=== PATIENT | male | born 1970 | race Caucasian/White ===

== ENCOUNTER 2021-01-30 11:10 | Inpatient (IN) ==
[2021-01-30] MEDS ORDERED: Furosemide 40 MG/4 ML VIAL IVP ONE (13:59)
[2021-01-30 15:06] LABS: Basophils # 0.1 K/mcL (0.0-0.2); Basophils % 0.5 %; Eosinophils # 0.4 K/mcL (0.0-0.6); Eosinophils % 2.3 %; Hematocrit 45.7 % (37.5-50.1); Hemoglobin 13.8 g/dL (12.9-16.9); Lymphocytes # 2.2 K/mcL (0.6-4.6); Mean Corpuscular HGB Conc 30.2 g/dL (31.6-35.5); Mean Corpuscular Hemoglobin 27.8 pg (28.0-33.3); Mean Platelet Volume 9.8 fL (9.4-12.4); Monocytes # 0.7 K/mcL (0.0-1.3); Monocytes % 4.3 %; Neutrophils # 12.2 K/mcL (1.6-8.9); Platelet Count 361 K/mcL (140-400); Red Blood Count 4.97 M/mcL (4.19-5.50); Red Cell Distribution Width 15.3 % (11.5-14.5); Segmented Neutrophils % 77.9 %; White Blood Count 15.6 K/mcL (4.3-11.1)
[2021-01-30] MEDS ORDERED: Ketorolac 15 MG/ML VIAL IVP ONE (15:07)
[2021-01-30 15:41] LABS: Alanine Aminotransferase 23 Units/L (7-52); Albumin 4.2 g/dL (3.5-5.7); Albumin/Globulin Ratio 1.4 (1.1-2.2); Alkaline Phosphatase 68 Units/L (34-104); Aspartate Amino Transferase 15 Units/L (13-39); BUN/Creatinine Ratio 14 (6-26); Bilirubin,Direct 0.1 mg/dL (0.0-0.2); Bilirubin,Indirect 0.5 mg/dL (0.0-1.0); Bilirubin,Total 0.6 mg/dL (0.3-1.0); Blood Urea Nitrogen 17 mg/dL (6-20); Calcium 9.9 mg/dL (8.6-10.3); Carbon Dioxide 27 mEq/L (23-29); Chloride 103 mEq/L (98-107); Globulin 2.9 g/dL (2.4-3.5); Glucose 96 mg/dL (70-105); Osmolality,Calculated 293 (280-300); Potassium 3.9 mEq/L (3.5-5.1); Sodium 141 mEq/L (136-145); Total Protein 7.1 g/dL (6.4-8.9); Troponin I < 0.03 ng/mL (< 0.04); eGFR For African Americans > 60 (> 60); eGFR For Non-African Americans > 60 (> 60)
[2021-01-30 15:46] LABS: Procalcitonin 0.05 ng/mL (0.00-0.15)
[2021-01-30] MEDS ORDERED: Perflutren Lipid Microsphere 1.3 ML in 0.9 % Sodium Chloride 8.7 ML IVP PRN (17:50)
[2021-01-30] MEDS ORDERED: D5% in Water 1,000 ML IVC PRN (18:17)
[2021-01-30] MEDS ORDERED: Dextrose Gel 15 GM/37.5 ML TUBE PO PRN ×2 (18:17)
[2021-01-30] MEDS ORDERED: *HR* Dextrose 50 % in Water (Syg) 50 ML SYRINGE IVP PRN (18:17)
[2021-01-30] MEDS: lisinopriL 20 MG TABLET PO SCH (20:05)
[2021-01-30] MEDS: hydrALAZINE 25 MG TABLET PO SCH (20:06)
[2021-01-30] MEDS: Furosemide 20 MG/2 ML VIAL IVP SCH (20:06)
[2021-01-30] MEDS: Gabapentin 300 MG CAPSULE PO SCH (20:06)
[2021-01-30] MEDS: Insulin LISPRO 300 UNITS/3 ML VIAL SUBQ SCH (20:07)
[2021-01-31 05:44] LABS: BUN/Creatinine Ratio 16 (6-26); Blood Urea Nitrogen 20 mg/dL (6-20); Calcium 9.5 mg/dL (8.6-10.3); Carbon Dioxide 29 mEq/L (23-29); Chloride 99 mEq/L (98-107); Glucose 131 mg/dL (70-105); Magnesium 1.8 mg/dL (1.6-2.6); Osmolality,Calculated 290 (280-300); Potassium 3.6 mEq/L (3.5-5.1); Sodium 138 mEq/L (136-145); eGFR For African Americans > 60 (> 60); eGFR For Non-African Americans 59 (> 60)
[2021-01-31] MEDS: Furosemide 20 MG/2 ML VIAL IVP SCH ×2 (08:38→16:24)
[2021-01-31] MEDS: hydrALAZINE 25 MG TABLET PO SCH ×4 (08:38→20:13)
[2021-01-31] MEDS: amLODIPine 5 MG TABLET PO SCH (08:39)
[2021-01-31] MEDS: Metoprolol XL (24 HR) Succ 50 MG TAB.ER.24H PO SCH (08:39)
[2021-01-31] MEDS: lisinopriL 20 MG TABLET PO SCH ×2 (08:39→20:12)
[2021-01-31] MEDS: Gabapentin 300 MG CAPSULE PO SCH ×2 (08:39→20:12)
[2021-01-31] MEDS: predniSONE 10 MG TABLET PO SCH (08:39)
[2021-01-31] MEDS: Insulin LISPRO 300 UNITS/3 ML VIAL SUBQ SCH ×3 (13:49→20:14)
[2021-01-31] MEDS ORDERED: hydroCHLOROthiazide 25 MG TABLET PO SCH (19:45)
[2021-01-31] MEDS: Insulin DETEMIR 100 UNIT/ML X5UNITS SUBQ SCH (21:10)
[2021-02-01 01:57] LABS: Basophils # 0.1 K/mcL (0.0-0.2); Basophils % 0.3 %; Eosinophils # 0.2 K/mcL (0.0-0.6); Eosinophils % 1.1 %; Hematocrit 43.2 % (37.5-50.1); Hemoglobin 13.3 g/dL (12.9-16.9); Immature Granulocytes % 0.6 % (0-4); Lymphocytes % 18.6 %; Mean Corpuscular HGB Conc 30.8 g/dL (31.6-35.5); Mean Corpuscular Hemoglobin 27.8 pg (28.0-33.3); Mean Corpuscular Volume 90.2 fL (83.0-100.0); Mean Platelet Volume 9.6 fL (9.4-12.4); Monocytes # 1.2 K/mcL (0.0-1.3); Monocytes % 7.8 %; Neutrophils # 11.4 K/mcL (1.6-8.9); Platelet Count 356 K/mcL (140-400); Red Blood Count 4.79 M/mcL (4.19-5.50); Red Cell Distribution Width 15.1 % (11.5-14.5); Segmented Neutrophils % 71.6 %
[2021-02-01 02:20] LABS: BUN/Creatinine Ratio 18 (6-26); Blood Urea Nitrogen 23 mg/dL (6-20); Calcium 9.4 mg/dL (8.6-10.3); Carbon Dioxide 28 mEq/L (23-29); Chloride 101 mEq/L (98-107); Glucose 123 mg/dL (70-105); Osmolality,Calculated 293 (280-300); Potassium 3.5 mEq/L (3.5-5.1); Sodium 139 mEq/L (136-145); eGFR For African Americans > 60 (> 60); eGFR For Non-African Americans 58 (> 60)
[2021-02-01 02:30] LABS: Thyroid Stimulating Hormone 1.535 mcIU/mL (0.340-5.600)
[2021-02-01] MEDS: *HR* Enoxaparin 40 MG/0.4 ML SYRINGE SQ SCH (05:47)
[2021-02-01] MEDS: Furosemide 20 MG/2 ML VIAL IVP SCH ×2 (08:51→17:37)
[2021-02-01] MEDS: predniSONE 10 MG TABLET PO SCH (08:52)
[2021-02-01] MEDS: Gabapentin 300 MG CAPSULE PO SCH ×2 (08:52→20:59)
[2021-02-01] MEDS: lisinopriL 20 MG TABLET PO SCH ×2 (08:52→20:59)
[2021-02-01] MEDS: amLODIPine 5 MG TABLET PO SCH (08:52)
[2021-02-01] MEDS: Metoprolol XL (24 HR) Succ 50 MG TAB.ER.24H PO SCH (08:53)
[2021-02-01] MEDS: hydrALAZINE 25 MG TABLET PO SCH ×4 (08:53→20:59)
[2021-02-01] MEDS: Insulin LISPRO 300 UNITS/3 ML VIAL SUBQ SCH ×4 (09:02→20:59)
[2021-02-01] MEDS: Insulin DETEMIR 100 UNIT/ML X5UNITS SUBQ SCH ×2 (09:04→21:00)
[2021-02-02 00:47] LABS: Basophils # 0.1 K/mcL (0.0-0.2); Basophils % 0.4 %; Eosinophils # 0.1 K/mcL (0.0-0.6); Eosinophils % 0.8 %; Hematocrit 43.9 % (37.5-50.1); Immature Granulocytes % 0.7 % (0-4); Lymphocytes # 2.7 K/mcL (0.6-4.6); Mean Corpuscular HGB Conc 31.9 g/dL (31.6-35.5); Mean Corpuscular Hemoglobin 28.4 pg (28.0-33.3); Mean Platelet Volume 9.7 fL (9.4-12.4); Monocytes # 1.3 K/mcL (0.0-1.3); Monocytes % 8.4 %; Neutrophils # 10.9 K/mcL (1.6-8.9); Platelet Count 358 K/mcL (140-400); Red Blood Count 4.93 M/mcL (4.19-5.50); Segmented Neutrophils % 71.7 %; White Blood Count 15.2 K/mcL (4.3-11.1)
[2021-02-02 01:01] LABS: BUN/Creatinine Ratio 21 (6-26); Blood Urea Nitrogen 29 mg/dL (6-20); Calcium 9.7 mg/dL (8.6-10.3); Carbon Dioxide 28 mEq/L (23-29); Chloride 101 mEq/L (98-107); Glucose 183 mg/dL (70-105); Osmolality,Calculated 297 (280-300); Potassium 3.5 mEq/L (3.5-5.1); Sodium 138 mEq/L (136-145); eGFR For African Americans > 60 (> 60); eGFR For Non-African Americans 55 (> 60)
[2021-02-02] MEDS: *HR* Enoxaparin 40 MG/0.4 ML SYRINGE SQ SCH (05:29)
[2021-02-02] MEDS: Metoprolol XL (24 HR) Succ 50 MG TAB.ER.24H PO SCH (07:32)
[2021-02-02] MEDS: hydrALAZINE 25 MG TABLET PO SCH (07:32)
[2021-02-02] MEDS: predniSONE 10 MG TABLET PO SCH (07:32)
[2021-02-02] MEDS: Gabapentin 300 MG CAPSULE PO SCH (07:32)
[2021-02-02] MEDS: amLODIPine 5 MG TABLET PO SCH (07:32)
[2021-02-02] MEDS: lisinopriL 20 MG TABLET PO SCH (07:37)
[2021-02-02] MEDS: Furosemide 20 MG/2 ML VIAL IVP SCH (07:39)
[2021-02-02] MEDS: Insulin LISPRO 300 UNITS/3 ML VIAL SUBQ SCH (07:42)
[2021-02-02] MEDS: Insulin DETEMIR 100 UNIT/ML X5UNITS SUBQ SCH (07:42)
[2021-02-02 10:44] VITALS: BP 154/80; PULSE 78; TEMP 98.3; O2SAT 93
== END 2021-02-02 12:05 | disposition home or self-care (01) | DRG 292 ==
LOC: 3BNU 11:10 → EMEROOARM 11:10 → SUATTDRO 16:57 → 3BNU 17:42 → SUATTDRO 02-02 07:55
PROVIDERS: ADMIT Student in an Organized Health Care Education/Training Program; ATTEND Internal Medicine